=== PATIENT | female | born 1955 | race Two or more races ===

== ENCOUNTER 2018-10-29 05:50 | Day surgery (SDC) | payer OTHER ==
[2018-10-29] MEDS ORDERED: Tylenol #3 PO (11:57)
[2018-10-29] MEDS ORDERED: DOXYCYCLINE HY100 M2 PO (11:57)
== END 2018-10-29 13:55 | disposition home or self-care (01) ==
LOC: CIR.AMB 05:50
DX: N84.0 Polyp of corpus uteri (principal); D25.0 Submucous leiomyoma of uterus